=== PATIENT | female | born 1995 ===

== ENCOUNTER 2021-10-13 05:28 | Outpatient (CLI) | payer SELFPAY ==
[~2021-10-13] VITALS: Ht 160 cm; Wt 86.4 kg
[2021-10-13] MEDS ORDERED: PREN-8 PO (13:23)
== END 2021-10-13 13:32 | disposition home or self-care (01) ==
LOC: PREOP 05:28
PROVIDERS: ATTEND Obstetrics & Gynecology
DX: Z01.818 Encounter for other preprocedural examination (principal)

== ENCOUNTER 2021-10-20 05:55 | Inpatient (IN) | payer OTHER ==
[2021-10-20] VITALS (10 sets, daily range): BP systolic 94–116; BP diastolic 60–79
[~2021-10-20] VITALS: Ht 160 cm; Wt 87.0 kg
[~2021-10-20 05:55] MED LIST: PREN-8 PO
[2021-10-20] MEDS ORDERED: LACTATED RINGERS 1,000 ML IV ONE (06:00)
[2021-10-20] MEDS ORDERED: ceFAZolin 2 GM IV Premixed 50 ML IV ONE (06:00)
[2021-10-20] MEDS ORDERED: METOCLOPRAMIDE INJ 10 MG/2 ML (REGLAN) IV ONE (06:00)
[2021-10-20] MEDS ORDERED: CITRIC ACID/SOB CIT (BICITRA) 30 ML UDC PO ONE (06:00)
[2021-10-20] MEDS ORDERED: FAMOTIDINE 20MG/2ML IV (PEPCID) IV ONE (06:00)
[2021-10-20] MEDS ORDERED: LACTATED RINGERS 1,000 ML IV PRN ×2 (06:00)
[2021-10-20] MEDS ORDERED: CATHETER FLUSH 10 ML SYR IV PRN (06:00)
[2021-10-20 06:46] LABS: BASOPHILS % (AUTO) 0 % (0-10); EOSINOPHILS # (AUTO) 0.2 10^3/uL (0.0-0.3); EOSINOPHILS % (AUTO) 3 % (0-10); HEMATOCRIT 30 % (35-52); HEMOGLOBIN 9.6 g/dL (11.5-16.0); LYMPHOCYTES # (AUTO) 1.9 10^3/uL (1.0-4.0); LYMPHOCYTES % (AUTO) 27 % (12-44); MEAN CORPUSCULAR HEMOGLOBIN 26 pg (25-34); MEAN CORPUSCULAR HGB CONC 32 g/dL (32-36); MEAN CORPUSCULAR VOLUME 82 fL (80-99); MEAN PLATELET VOLUME 10.8 fL (9.0-12.2); MONOCYTES # (AUTO) 0.5 10^3/uL (0.0-1.0); MONOCYTES % (AUTO) 7 % (0-12); NEUTROPHILS # (AUTO) 4.6 10^3/uL (1.8-7.8); NEUTROPHILS % (AUTO) 63 % (42-75); PLATELET COUNT 295 10^3/uL (130-400); WHITE BLOOD COUNT 7.3 10^3/uL (4.3-11.0)
[2021-10-20] MEDS ORDERED: fentaNYL INJ 100 MCG/2 ML AMP ONE (06:47)
[2021-10-20] MEDS ORDERED: ONDANSETRON 4 MG/2 ML (SDV) Z0FRAN ONE (06:47)
--- NOTE | 2021-10-20 07:17 | History & Physical-OB ---
OB - Chief Complaint & HPI Date/Time Date of Admission: Date of Admission: Oct 20, 2021 at 05:55 Date seen by a Provider: Oct 20, 2021 Time Seen by a Provider: 07:05 Chief Complaint/History OB-Reason for Admission/Chief: Section Hx : 3 Hx Para: 2 Expected Date of Delivery: Oct 27, 2021 Gestational Age in Weeks: 39 Gestational Age in Days: 0 Indication for : desires repeat Admission Nurse Assessment Rev: Yes History of Labs O pos Antibody neg RPR NR HBsAg NR HCsAg NR HIV NR GC neg Allergies and Home Medications Allergies Coded Allergies: No Known Drug Allergies (Unverified , 10/13/21) Patient Home Medication List Home Medication List Reviewed: Yes Vit W-Ca,Fe,FA(<1 mg) ( Formula) 1 Each Tablet, 1 EACH PO DAILY, (Reported) Entered as Reported by: HUMERA GILL on 10/13/21 1323 OB - History Hx of Present Care: Yes Ultrasounds: Normal mid trimester US Obstetrical Complications: None Medical Complications: None Patient Past Medical History n/a Immunizations Influenza Vaccine Up-to-Date: Yes; Up-to-Date Hepatitis A: Yes Hepatitis B: Yes OB - Admission Exam Physical Exam Vitals: Vital Signs 10/20/21 07:02 Temp 37.4 Pulse 78 Resp 18 Pulse Ox 98 O2 Delivery Room Air HEENT: NCAT Heart: Rhythm Normal Lungs: Clear Abdomen: Gravid Extremities: Normal Reflexes: Normal Heart Rate: 130's Accelerations: Accelerations Present Decelerations: No Decelerations Short Term Variability: Present Halfway Variability: Average (6-25) Contractions on Admission: 6-10 Minutes Apart Intensity: Mild Labs Laboratory Tests Test 10/20/21 06:28 Range/Units White Blood Count 7.3 4.3-11.0 10^3/uL Red Blood Count 3.68 L 3.80-5.11 10^6/uL Hemoglobin 9.6 L 11.5-16.0 g/dL Hematocrit 30 L 35-52 % Mean Corpuscular Volume 82 80-99 fL Mean Corpuscular Hemoglobin 26 25-34 pg Mean Corpuscular Hemoglobin Concent 32 32-36 g/dL Red Cell Distribution Width 15.3 H 10.0-14.5 % Platelet Count 295 130-400 10^3/uL Mean Platelet Volume 10.8 9.0-12.2 fL Immature Granulocyte % (Auto) 1 % Neutrophils (%) (Auto) 63 42-75 % Lymphocytes (%) (Auto) 27 12-44 % Monocytes (%) (Auto) 7 0-12 % Eosinophils (%) (Auto) 3 0-10 % Basophils (%) (Auto) 0 0-10 % Neutrophils # (Auto) 4.6 1.8-7.8 10^3/uL Lymphocytes # (Auto) 1.9 1.0-4.0 10^3/uL Monocytes # (Auto) 0.5 0.0-1.0 10^3/uL Eosinophils # (Auto) 0.2 0.0-0.3 10^3/uL Basophils # (Auto) 0.0 0.0-0.1 10^3/uL Immature Granulocyte # (Auto) 0.0 0.0-0.1 10^3/uL OB - Assessment/Plan/Diagnosis Assessment Assessment: section Admission Dx 25 yo @ 39 weeks Previous Admission Status: Inpatient Order (span 2 midnights) Reason for Inpatient Admission: Repeat Plan Plan: Section VINEET OLMSTEAD DO Oct 20, 2021 07:17
--- NOTE | 2021-10-20 07:24 | Discharge Inst-Women's Service ---
Discharge Inst-Women's Serv Depart Medication/Instructions New, Converted or Re-Newed RX: Transmitted to Pharmacy Final Diagnosis POD 2 RLTCS Problems Reviewed?: Yes Consults/Follow Up Additional Follow Up: Yes Orders/Referrals Dr. Covarrubias in 7-[address] Zhang/ [facility] in 6 weeks Activity Activity: Activity as Tolerated Driving Instructions: No Driving for 1 Week NO SMOKING: NO SMOKING Nothing Inside Vagina: No Douching, No Searchlight, No Tampons Diet Discharge Diet: No Restrictions Symptoms to Report to : Bleeding Excessive, Pain Increased, Fever Over 101 Degrees F, Vaginal Bleeding Increase, Questions/Concerns For Any Problems or Questions: Contact Your Physician Skin/Wound Care Infection Signs and Symptoms: Increased Redness, Foul Odor of Wound, Increased Drainage, Skin Itchy or Has a Rash, Increased Swelling, Temperature Above 101 F Operative Area Clean and Dry: Keep Incision Clean/Dry Stitches/Scotty/Dermabond: Dermabond, Care of Stitches Bathing Instructions: VINEET Sánchez DO Oct 20, 2021 07:24
[2021-10-20] MEDS ORDERED: ACHD5005 PO (07:25)
[2021-10-20] MEDS ORDERED: DOCU100C37 PO (07:25)
[2021-10-20] MEDS ORDERED: IBUP-844 PO (07:25)
[2021-10-20] MEDS ORDERED: NALOXONE 0.4 MG/ML 1 ML (NARCAN) VIAL IV PRN (07:30)
[2021-10-20] MEDS ORDERED: TETANUS,DIPTH,PERTUSS P/F (BOOSTRIX) 0.5 ML VIAL IM SCH (07:30)
[2021-10-20] MEDS ORDERED: MEASLES,MUMPS,RUBELLA 1 EA INJ SC SCH (07:30)
[2021-10-20] MEDS ORDERED: ONDANSETRON 4 MG/2 ML (SDV) Z0FRAN IVP PRN (07:30)
[2021-10-20] MEDS ORDERED: KETOROLAC 30 MG/ML VIAL ONE (08:15)
[2021-10-20] MEDS ORDERED: OXYTOCIN PRE-MIX DRIP 500 ML IV ONE (08:15)
[2021-10-20] MEDS ORDERED: BUPIVACAINE 0.5% 30 ML (SENSORCAINE) VIAL ONE (08:20)
[2021-10-20] MEDS: OXYTOCIN PRE-MIX DRIP 500 ML IV SCH ×2 (09:50→13:46)
[2021-10-20] MEDS: HYDROcodone/APAP 5 MG/325 MG (LORTAB) TAB PO PRN ×2 (11:56→18:16)
--- NOTE | 2021-10-20 13:04 | OPERATIVE REPORT ---
DATE OF SERVICE: PREOPERATIVE DIAGNOSES: 1. A 25-year-old G3, P2 at 39 weeks gestation. 2. Previous section. POSTOPERATIVE DIAGNOSES: 1. A 25-year-old G3, P2 at 39 weeks gestation. 2. Previous section. PROCEDURE PERFORMED: Repeat low transverse section. SURGEON: Gopi Olmstead DO. ANESTHESIA: Spinal. ESTIMATED BLOOD LOSS: 500 mL. URINE OUTPUT: 50 mL clear at the end of the procedure. FLUIDS: 1400 mL of lactated Ringer's solution. FINDINGS: A live male infant weighing 7 pounds 5 ounces, Apgars of 8 and 9. Grossly normal appearing uterus, bilateral fallopian tubes, and ovaries. SPECIMEN SENT: None. INDICATIONS FOR PROCEDURE: This 25-year-old female is a patient that sought care at [facility]. Her care was uncomplicated with the exception for need for repeat due to prior x2. Risks of the procedure were discussed with the patient in detail on her preoperative consultation. After all of her questions were answered, consent was obtained in the preoperative area and the patient was taken to the operating room. OPERATIVE REPORT IN DETAIL: Once in the operating room, spinal analgesia was found to be adequate. She was placed in supine position with leftward tilt, prepped and draped in a normal sterile fashion. Timeout was performed and anesthesia was tested. I then made a Pfannenstiel skin incision through the previously existing scar using knife and carried down to the underlying fascia using Bovie cautery. The fascial incision was extended laterally using Bovie cautery. The superior aspect of the fascial incision was then grasped with Leticia clamps, tented up, and dissected off the underlying rectus muscles. The inferior aspect of fascial incision was then grasped with Leticia clamps, tented up, and dissected off the underlying rectus muscles. The rectus muscle was dissected down the midline using sharp dissection, which exposed the peritoneum, which I entered bluntly using blunt traction. Christopher ring retractor was placed within the peritoneal incision, which offers excellent lateral sidewall retraction. I identified the lower uterine segment, which was found to be thinned out. I made a low transverse incision to the vesicouterine peritoneum and bluntly dissected off the lower uterine segment, creating a bladder flap. I then proceeded with my myotomy until membranes were visualized, at which point, I extended the uterine incision laterally and superiorly using bandage scissors. Amniotomy was then performed using an Allis clamp. Clear fluid was noted. With gentle fundal pressure, the infant's head was elevated up out of the incision, where it was delivered through the incision. The nares and oropharynx were bulb suctioned. Anterior and posterior shoulders were delivered. The infant was then brought to the operative field, where the cord was doubly clamped and cut and infant was handed off to awaiting nurses in attendance. Cord blood was collected, 3-vessel cord with intact placenta was delivered spontaneously thereafter. IV Pitocin was initiated to facilitate uterine contraction. Uterine fundus became firmer with bimanual massage. The uterus was then exteriorized and cleared of all endometrial clots and debris. I then proceeded with closing the uterine incision using 0 Vicryl suture in a running locked fashion. Second layer of imbricating 0 Monocryl was placed. Excellent hemostasis was noted after doing this. I then placed the uterus back in the pelvis and copiously irrigated the pelvis using normal saline. Once again, there was no active bleeding noted from any of my dissection planes. I placed Interceed antiadhesive over my low transverse incision. I then removed the Christopher ring retractor and proceeded with closing the peritoneum using 2-0 Vicryl suture in a running fashion. The rectus muscle was reapproximated using 3-0 Vicryl suture in an interrupted fashion. The fascia was reapproximated using 0 Vicryl suture in a running fashion. The subcutaneous tissue was reapproximated using 3-0 plain interrupted subcutaneous stitch and skin was reapproximated using 4-0 Monocryl running subcuticular. Dermabond was applied to the incision and sterile dressing with adhesive white tape. The patient tolerated the procedure well and was taken to recovery area in a stable condition. Lap and sponge counts were correct at the end of the procedure. Instrument count was correct as well. Two grams of Ancef were given preoperatively for infection prophylaxis. Job ID: [id number] DocumentID: [id number] Dictated Date: 10/20/2021 08:49:20 Roof Fitter Date: 10/20/2021 13:04:13 Dictated By: GOPI OLMSTEAD DO
[2021-10-20] MEDS: KETOROLAC 30 MG/ML VIAL IV SCH ×2 (13:53→21:16)
[2021-10-20] MEDS: CATHETER FLUSH 10 ML SYR IV SCH ×2 (20:55→21:16)
[2021-10-20] MEDS: DOCUSATE SODIUM 100 MG (COLACE) CAP PO SCH ×2 (20:55→21:16)
[2021-10-21 00:05] VITALS: BP 109/63
[2021-10-21] MEDS: HYDROcodone/APAP 5 MG/325 MG (LORTAB) TAB PO PRN ×3 (00:05→19:49)
[2021-10-21 04:00] VITALS: BP 113/54
[2021-10-21] MEDS: KETOROLAC 30 MG/ML VIAL IV SCH ×2 (04:00→07:16)
[2021-10-21] MEDS: CATHETER FLUSH 10 ML SYR IV SCH (04:00)
[2021-10-21 06:17] LABS: BASOPHILS % (AUTO) 1 % (0-10); EOSINOPHILS # (AUTO) 0.3 10^3/uL (0.0-0.3); EOSINOPHILS % (AUTO) 4 % (0-10); HEMATOCRIT 27 % (35-52); HEMOGLOBIN 8.7 g/dL (11.5-16.0); LYMPHOCYTES # (AUTO) 2.1 10^3/uL (1.0-4.0); LYMPHOCYTES % (AUTO) 24 % (12-44); MEAN CORPUSCULAR HEMOGLOBIN 26 pg (25-34); MEAN CORPUSCULAR HGB CONC 32 g/dL (32-36); MEAN CORPUSCULAR VOLUME 82 fL (80-99); MEAN PLATELET VOLUME 10.7 fL (9.0-12.2); MONOCYTES # (AUTO) 0.6 10^3/uL (0.0-1.0); MONOCYTES % (AUTO) 6 % (0-12); NEUTROPHILS # (AUTO) 5.7 10^3/uL (1.8-7.8); NEUTROPHILS % (AUTO) 65 % (42-75); PLATELET COUNT 273 10^3/uL (130-400); WHITE BLOOD COUNT 8.8 10^3/uL (4.3-11.0)
[2021-10-21] MEDS: DOCUSATE SODIUM 100 MG (COLACE) CAP PO SCH ×2 (08:18→19:48)
[2021-10-21 08:19] VITALS: BP 107/68
--- NOTE | 2021-10-21 09:02 | Anesthesia-Regional Post-Op ---
Regional Patient Condition Mental Status: Alert, Oriented x3 Circulation: Same as Pre-Op Headache: Absent Sensation: Full Recovery Motor Block: Absent Post Op Complications Complications None Follow Up Care/Instructions Patient Instructions None needed. Anesthesia/Patient Condition Patient is doing well, no complaints, stable vital signs, no apparent adverse anesthesia problems. No complications reported per nursing. NISHI ROSAS CRNA Oct 21, 2021 09:02
--- NOTE | 2021-10-21 11:48 | Postpartum Progress Note ---
Note Note Day # 1 Subjective: Patient is without complaints. Ambulating, voiding. Tolerating a regular diet without nausea or vomiting. Normal lochia. Pain is well controlled with oral pain medications. Objective: Physical Exam: General - Alert and oriented, no apparent distress Abdomen - Soft, appropriately tender to palpation, non-distended, fundus firm at umbilicus; incision c/d/i Extremities - no edema, negative Francois's bilaterally Assessment: Post- day # 1, status post RLTCS. Recovering well, hemodynamically stable Acute blood loss anemia Plan: Routine care. Encourage breast feeding. Encourage ambulation. Ferrous sulfate supplementation. Plan for discharge tomorrow Vitals - Labs Vital Signs - I&O Vital Signs Date Time Temp Pulse Resp B/P (MAP) Pulse Ox O2 Delivery O2 Flow Rate FiO2 10/21/21 08:19 36.6 79 16 107/68 (81) 100 Room Air 10/21/21 04:00 36.0 70 16 113/54 (73) 98 Room Air 10/21/21 00:05 36.1 78 18 109/63 (78) 98 Room Air 10/20/21 20:00 36.0 72 18 103/69 (80) 99 Room Air 10/20/21 16:00 36.4 71 18 115/65 (82) 100 Room Air 10/20/21 15:00 Room Air 10/20/21 13:00 36.5 62 16 115/72 (86) 98 Room Air I & O 10/21/21 07:00 Intake Total 4040 ml Output Total 1050 ml Balance 2990 ml Labs Laboratory Tests 10/21/21 05:49: White Blood Count 8.8, Red Blood Count 3.33L, Hemoglobin 8.7L, Hematocrit 27L, Mean Corpuscular Volume 82, Mean Corpuscular Hemoglobin 26, Mean Corpuscular Hemoglobin Concent 32, Red Cell Distribution Width 15.5H, Platelet Count 273, Mean Platelet Volume 10.7, Immature Granulocyte % (Auto) 1, Neutrophils (%) (Auto) 65, Lymphocytes (%) (Auto) 24, Monocytes (%) (Auto) 6, Eosinophils (%) (Auto) 4, Basophils (%) (Auto) 1, Neutrophils # (Auto) 5.7, Lymphocytes # (Auto) 2.1, Monocytes # (Auto) 0.6, Eosinophils # (Auto) 0.3, Basophils # (Auto) 0.0, Immature Granulocyte # (Auto) 0.1 JOLANTA BHATT CATH LAB TECHNOLOGIST Oct 21, 2021 11:48
[2021-10-21] MEDS: IBUPROFEN 600 MG (MOTRIN) TAB PO SCH ×2 (13:07→19:49)
[2021-10-21 13:09] VITALS: BP 118/66
[2021-10-21 19:49] VITALS: BP 112/67
[2021-10-22 02:20] VITALS: BP 112/57
[2021-10-22] MEDS: HYDROcodone/APAP 5 MG/325 MG (LORTAB) TAB PO PRN ×2 (02:20→09:26)
[2021-10-22] MEDS: IBUPROFEN 600 MG (MOTRIN) TAB PO SCH ×2 (02:20→09:26)
--- NOTE | 2021-10-22 08:40 | Postpartum Progress Note ---
Note Note Day # 2 Subjective: Patient is without complaints. Ambulating, voiding. Tolerating a regular diet without nausea or vomiting. Normal lochia. Pain is well controlled with oral pain medications. Objective: Physical Exam: General - Alert and oriented, no apparent distress Abdomen - Soft, appropriately tender to palpation, non-distended, fundus firm at umbilicus; incision c/d/i Extremities - no edema, negative Francois's bilaterally Assessment: Post- day # 2, status post RLTCS. Recovering well, hemodynamically stable Acute blood loss anemia Plan: Routine care. Encourage breast feeding. Encourage ambulation. Ferrous sulfate supplementation. Plan for discharge today Vitals - Labs Vital Signs - I&O Vital Signs Date Time Temp Pulse Resp B/P (MAP) Pulse Ox O2 Delivery O2 Flow Rate FiO2 10/22/21 02:20 36.6 69 18 112/57 (75) 97 Room Air 10/21/21 19:49 36.4 72 18 112/67 (82) 98 Room Air 10/21/21 13:09 36.7 78 18 118/66 (83) 99 Room Air I & O 10/22/21 07:00 Intake Total 800 ml Balance 800 ml JOLANTA BHATT SUPERVISOR ENROBING Oct 22, 2021 08:40
[2021-10-22 09:25] VITALS: BP 114/59
[2021-10-22] MEDS: DOCUSATE SODIUM 100 MG (COLACE) CAP PO SCH (09:26)
== END 2021-10-22 12:20 | disposition home or self-care (01) | DRG 787 ==
LOC: LDRP 05:55 → WS 08:45
PROVIDERS: ADMIT Obstetrics & Gynecology; ATTEND Obstetrics & Gynecology
PROC: 10D00Z1 Extraction of Products of Conception, Low, Open Approach (ICD-10-PCS; principal; 2021-10-20 07:24)
DX: O34.211 Maternal care for low transverse scar from previous cesarean delivery (principal); D62 Acute posthemorrhagic anemia; Z3A.39 39 weeks gestation of pregnancy; Z37.0 Single live birth; O90.81 Anemia of the puerperium
CPT/HCPCS: 36415; 85025; 86850; 86900; 86901; 94664